=== PATIENT | female | born 1975 | race Caucasian/White ===

== ENCOUNTER → 2018-10-28 | Outpatient (REF) | payer OTHER | LOC: M LAB LCGH 13:47 | PROVIDERS: ATTEND Obstetrics & Gynecology | DX: Z12.4 Encounter for screening for malignant neoplasm of cervix (principal) ==

== ENCOUNTER → 2018-12-16 | Outpatient (REF) | payer OTHER ==
[2018-12-22 08:53] LABS: DRVV SCREEN 40.5 SEC
[2018-12-23 00:06] LABS: ANCA-ATYPICAL <1:20 titer (Neg:<1:20); ANGIOTENSIN 1 CONVERTING ENZYM 45 U/L (14-82); ANTI DS-DNA AB <1:10 titer (.); ANTI THROMBIN 3 ANTIGEN IMMUNO 93 % (72-124); ANTI THROMBIN 3 FUNCT ACTIVITY 112 % (75-135); ANTINUCLEAR ANTIBODIES DIRECT Negative (Negative); CARDIOLIPIN IGA ANTIBODY <9 APL U/mL (0-11); CARDIOLIPIN IGG ANTIBODY <9 GPL U/mL (0-14); CARDIOLIPIN IGM ANTIBODY 12 MPL U/mL (0-12); CYTOPLASMIC NEUTROP AB ANCA-C <1:20 titer (Neg:<1:20); HOMOCYST(E)INE SERUM 8.2 umol/L (0.0-15.0); PERINUCLEAR AB ANCA-P <1:20 titer (Neg:<1:20); PROTEIN C ANTIGEN 132 % (60-150); PROTEIN C FUNCTIONAL ACTIVITY 167 % (73-180); PROTEIN S ANTIGEN FREE 139 % (57-157); PROTEIN S ANTIGEN TOTAL 113 % (60-150); PROTEIN S FUNCTIONAL ACTIVITY 93 % (63-140); SJOGREN'S ANTI SS-A <0.2 AI (0.0-0.9); SJOGREN'S ANTI SS-B <0.2 AI (0.0-0.9)
== END ==
LOC: M LABNEURO 10:17
PROVIDERS: ATTEND Psychiatry & Neurology Neurology
DX: G45.9 Transient cerebral ischemic attack, unspecified (principal)

== ENCOUNTER → 2022-12-24 | Outpatient (REF) | payer OTHER ==
[2022-12-24 19:05] LABS: MAU/CREAT RATIO 823.8 MCG/MG (0.0-30.0)
== END ==
LOC: M LAB REF 17:19
PROVIDERS: ATTEND Nurse Practitioner Family
DX: E11.65 Type 2 diabetes mellitus with hyperglycemia (principal)

== ENCOUNTER 2024-04-01 15:39 | Emergency (ER) | payer MEDICARE, OTHER ==
[~2024-04-01] VITALS: Ht 160 cm; Wt 91.8 kg
[2024-04-01 17:16] LABS: HEMATOCRIT 43.9 % (36.0-47.0); HEMOGLOBIN 14.9 g/dl (12.0-15.5); MEAN CORPUSCULAR HEMOGLOBIN 31.5 pg (27.0-33.0); MEAN CORPUSCULAR HGB CONC 33.9 g/dl (32.0-36.5); MEAN CORPUSCULAR VOLUME 92.8 fl (80.0-96.0); PLATELET COUNT, AUTOMATED 255 10^3/uL (150-450); RED BLOOD COUNT 4.73 10^6/uL (4.00-5.40); WHITE BLOOD COUNT 11.1 10^3/uL (4.0-10.0)
[2024-04-01 17:30] LABS: AMPHETAMINES LEVEL URINE NEGATIVE (NEGATIVE)
[2024-04-01 17:31] LABS: BARBITURATES URINE NEGATIVE (NEGATIVE); BENZODIAZEPINES URINE NEGATIVE (NEGATIVE); CANNABINOIDS URINE NEGATIVE (NEGATIVE); COCAINE METABOLITE URINE NEGATIVE (NEGATIVE); ETHYL ALCOHOL (ETHANOL) < 0.003 % (0.000-0.010); METHADONE URINE NEGATIVE (NEGATIVE); OPIATES URINE NEGATIVE (NEGATIVE); PHENCYCLIDINE URINE NEGATIVE (NEGATIVE)
[2024-04-01 17:33] LABS: SALICYLATE LEVEL < 3.0 MG/DL (<30)
[2024-04-01 17:34] LABS: ALBUMIN 3.8 G/DL (3.2-5.2); ALKALINE PHOSPHATASE 99 U/L (35-104); ALT/SGPT 23 U/L (7.0-40); AST/SGOT 17 U/L (<34); BILIRUBIN,DIRECT < 0.1 MG/DL (<0.4); BILIRUBIN,TOTAL 0.3 MG/DL (0.3-1.2); BLOOD UREA NITROGEN 10 MG/DL (9-23); CALCIUM LEVEL 9.8 MG/DL (8.5-10.1); CARBON DIOXIDE LEVEL 29 MMOL/L (20-31); CHLORIDE LEVEL 105 MMOL/L (98-107); CREATININE FOR GFR 0.67 MG/DL (0.55-1.30); GLOMERULAR FILTRATION RATE > 60.0 (>51); GLUCOSE, FASTING 142 MG/DL (60-100); POTASSIUM SERUM 3.8 MMOL/L (3.5-5.1); SODIUM LEVEL 142 MMOL/L (136-145); TOTAL PROTEIN 7.2 G/DL (5.7-8.2)
[2024-04-01 17:35] LABS: THYROID STIMULATING HORMONE 1.171 uIU/ML (0.55-4.78)
[2024-04-01 18:49] VITALS: BP 137/66; TEMP 96.7; O2SAT 94
== END 2024-04-01 18:54 | disposition home or self-care (01) ==
LOC: M ED 15:39
DX: F43.0 Acute stress reaction (principal); E11.9 Type 2 diabetes mellitus without complications; I10 Essential (primary) hypertension; E78.5 Hyperlipidemia, unspecified; Z88.8 Allergy status to other drugs, medicaments and biological substances

== ENCOUNTER 2025-01-01 17:57 | Emergency (ER) | payer MEDICARE, MEDICAID ==
[~2025-01-01] VITALS: Ht 160 cm; Wt 104.0 kg
[~2025-01-01 17:57] MED LIST: KETO-204 PO
[2025-01-01] MEDS ORDERED: KETOROLAC 60 MG/2 ML VIAL IM ONE (21:50)
[2025-01-01] MEDS ORDERED: METHOCARBAMOL 1,000 MG/10 ML VIAL IM ONE (21:50)
[2025-01-01] MEDS: LIDOCAINE 5% PATCH TD ONE (22:14)
[2025-01-01] MEDS: METHOCARBAMOL 1,000 MG/10 ML VIAL IV ONE (22:15)
[2025-01-01] MEDS: KETOROLAC 30 MG/ML 1 ML VIAL IV ONE (22:15)
[2025-01-01] MEDS: ONDANSETRON 4MG 2ML VIAL IV ONE (22:52)
[2025-01-01] MEDS: MORPHINE 4 MG/ML 1 ML VIAL IV ONE (22:55)
[2025-01-01] MEDS ORDERED: LIDO1ADH93 TD (23:55)
[2025-01-01] MEDS ORDERED: MEDR4PAK PO (23:55)
[2025-01-01] MEDS ORDERED: METH-1164 PO (23:55)
[2025-01-01 23:56] VITALS: BP 110/69; TEMP 98.2; O2SAT 94
== END 2025-01-02 00:05 | disposition home or self-care (01) ==
LOC: M ED 17:57
DX: S13.4XXA Sprain of ligaments of cervical spine, initial encounter (principal); Y92.9 Unspecified place or not applicable; Y93.9 Activity, unspecified; Y99.9 Unspecified external cause status; E11.9 Type 2 diabetes mellitus without complications; E78.00 Pure hypercholesterolemia, unspecified; Z88.1 Allergy status to other antibiotic agents; Z88.8 Allergy status to other drugs, medicaments and biological substances; Z79.2 Long term (current) use of antibiotics; Z79.899 Other long term (current) drug therapy
CPT/HCPCS: 72125; 72128; 96374; 96375; 99284; J1885; J2405; J2800; J2919